=== PATIENT | female | born 1990 | race Hispanic/Latino ===

== ENCOUNTER 2024-03-18 19:00 | Emergency (ER) | payer OTHER ==
[2024-03-18] MEDS ORDERED: predniSONE 20 MG TAB ONE (19:44)
[2024-03-18] MEDS ORDERED: diphenhydrAMINE 25 MG CAP ONE (19:44)
== END 2024-03-18 19:52 | disposition home or self-care (01) ==
LOC: CSHERS 19:00
DX: T63.2X1A Toxic effect of venom of scorpion, accidental (unintentional), initial encounter (principal)
CPT/HCPCS: 99282; J7512

== ENCOUNTER 2025-06-17 20:08 | Emergency (ER) | payer OTHER, SELFPAY ==
[2025-06-17] MEDS ORDERED: Ondansetron PF 4 MG/2 ML Vial ONE (20:52)
[2025-06-17 20:54] LABS: BHCG - Serum Negative (NEGATIVE); Pregs Control Background? CLEAR/WHITE (CLR/WHITE); Pregs Control Bar Appear? YES (CONTROL BAR)
[2025-06-17 20:55] LABS: #Basophils 0.06 10x3/uL (0.0-0.2); #Eosinophils 0.06 10x3/uL (0.0-0.5); #Monocytes 0.47 10x3/uL (0.0-1.1); #Neutrophils 4.08 10x3/uL (1.5-8.4); %Basophils 0.9 % (0.0-2.0); %Eosinophils 0.9 % (0.0-6.0); %Lymphocytes 30.0 % (18.0-47.0); %Monocytes 7.0 % (0.0-10.0); %Neutrophils 61.1 % (40.0-75.0); Hematocrit 38.4 % (34.9-44.5); Hemoglobin 11.9 g/dL (12.0-15.5); Mean Corpuscular Hemoglobin 23.8 pg (27.0-33.0); Mean Corpuscular Volume 77.0 fL (81.6-98.3); Platelet Count 385 10x3/uL (150-450); Red Blood Cell (RBC) Count 4.99 10x6/uL (3.90-5.03); White Blood Cell (WBC) Count 6.69 10x3/uL (3.5-10.5)
[2025-06-17 21:04] LABS: ALT (SGPT) 156 U/L (Less than 34); AST (SGOT) 389 U/L (11-34); Albumin 4.3 g/dL (3.1-4.5); Alkaline Phosphatase 102 U/L (40-110); Anion Gap 16 mmol/L (10-20); BUN (Urea Nitrogen) 7 mg/dL (7.0-18.7); Bilirubin, Total 1.7 mg/dL (0.3-1.2); Calc. Creatinine Clearance 0 mL/min (70-130); Calcium 8.9 mg/dL (7.8-10.44); Carbon Dioxide 21 mmol/L (22-29); Chloride 108 mmol/L (98-107); Globulin 4.0 g/dL (2.4-3.5); Glucose 83 mg/dL (70-105); Lipase 24 U/L (8-78); Potassium 3.8 mmol/L (3.5-5.1); Sodium 141 mmol/L (136-145)
[2025-06-17 21:06] LABS: Glucose, Urine (Dipstick) Negative (Negative); Leukocyte Negative (Negative); Protein, Urine (Dipstick) Negative (Neg-Trace); Specific Gravity, Urine 1.015 (1.005-1.030)
[2025-06-17 21:16] LABS: Troponin I Less than 0.010 ng/mL (< 0.028)
[2025-06-17 21:19] LABS: Bacteria/HPF 2+ HPF (None Seen); CAUTI Indications for Culture Pelvic or flank pain; RBC/HPF 0-3 HPF (0-3); WBC/HPF 0-3 HPF (0-3)
[2025-06-17 21:21] LABS: Mucous/LPF 2+ LPF (<2+)
[2025-06-17 21:22] LABS: Urine Culture Reflex No No
== END 2025-06-17 23:24 | disposition home or self-care (01) ==
LOC: CSHERS 20:08
DX: K80.20 Calculus of gallbladder without cholecystitis without obstruction (principal); R74.8 Abnormal levels of other serum enzymes; E66.9 Obesity, unspecified
CPT/HCPCS: 76705; 80053; 81001; 83690; 84484; 84703; 85025; 93005; 96361; 96374; 96375

== ENCOUNTER 2025-06-19 18:35 | Emergency (ER) | payer SELFPAY ==
[2025-06-19 19:23] LABS: #Basophils 0.04 10x3/uL (0.0-0.2); #Eosinophils 0.08 10x3/uL (0.0-0.5); #Monocytes 0.29 10x3/uL (0.0-1.1); #Neutrophils 4.27 10x3/uL (1.5-8.4); %Basophils 0.7 % (0.0-2.0); %Eosinophils 1.3 % (0.0-6.0); %Lymphocytes 23.5 % (18.0-47.0); %Monocytes 4.7 % (0.0-10.0); %Neutrophils 69.6 % (40.0-75.0); Hematocrit 37.0 % (34.9-44.5); Hemoglobin 11.8 g/dL (12.0-15.5); Mean Corpuscular Hemoglobin 23.9 pg (27.0-33.0); Mean Corpuscular Volume 75.1 fL (81.6-98.3); Platelet Count 386 10x3/uL (150-450); Red Blood Cell (RBC) Count 4.93 10x6/uL (3.90-5.03); White Blood Cell (WBC) Count 6.13 10x3/uL (3.5-10.5)
[2025-06-19] MEDS ORDERED: Ondansetron PF 4 MG/2 ML Vial ONE (19:24)
[2025-06-19] MEDS ORDERED: Ketorolac Tromethamine 30 MG (1 mL) VIAL ONE (19:24)
[2025-06-19 19:45] LABS: BHCG - Serum Negative (NEGATIVE); Pregs Control Background? CLEAR/WHITE (CLR/WHITE); Pregs Control Bar Appear? YES (CONTROL BAR)
[2025-06-19 19:47] LABS: ALT (SGPT) 474 U/L (Less than 34); AST (SGOT) 434 U/L (11-34); Albumin 4.0 g/dL (3.1-4.5); Alkaline Phosphatase 162 U/L (40-110); Anion Gap 14 mmol/L (10-20); BUN (Urea Nitrogen) 5 mg/dL (7.0-18.7); Bilirubin, Total 5.7 mg/dL (0.3-1.2); Calc. Creatinine Clearance 0 mL/min (70-130); Calcium 9.5 mg/dL (7.8-10.44); Carbon Dioxide 20 mmol/L (22-29); Chloride 106 mmol/L (98-107); Globulin 4.0 g/dL (2.4-3.5); Glucose 105 mg/dL (70-105); Lipase 17 U/L (8-78); Potassium 3.6 mmol/L (3.5-5.1); Sodium 136 mmol/L (136-145)
[2025-06-19 20:12] LABS: Glucose, Urine (Dipstick) Negative (Negative); Leukocyte Negative (Negative); Protein, Urine (Dipstick) Negative (Neg-Trace); Specific Gravity, Urine 1.010 (1.005-1.030)
[2025-06-19 20:22] LABS: Bacteria/HPF None Seen HPF (None Seen); CAUTI Indications for Culture Dysuria,urgency,freq; RBC/HPF None Seen HPF (0-3); WBC/HPF None Seen HPF (0-3)
[2025-06-19 20:23] LABS: Urine Culture Reflex No No
== END 2025-06-19 23:56 | disposition short-term general hospital (02) ==
LOC: CSHERS 18:35
DX: K80.20 Calculus of gallbladder without cholecystitis without obstruction (principal); E11.9 Type 2 diabetes mellitus without complications
CPT/HCPCS: 76705; 80053; 81001; 83690; 84703; 85025; 96361; 96374; 96375; J1885; J2543